=== PATIENT | female | born 1930 | race Caucasian/White ===

== ENCOUNTER 2017-08-19 12:54 | Emergency (ER) | payer MEDICARE, OTHER ==
[~2017-08-19] VITALS: Ht 152.4 cm; Wt 49.9 kg
[~2017-08-19 12:54] MED LIST: Benadryl25 MG; CHLO25B PO; Hydrocodone-Ap1 EA23 PO; QUET25 PO
[2017-08-19] MEDS ORDERED: DIPH50 PO (13:41)
[2017-08-19] MEDS ORDERED: CVS DISPOSABLE399 ML PR (13:43)
[2017-08-19] MEDS ORDERED: LOPE2C PO (13:45)
[2017-08-19] MEDS ORDERED: LORA.5 PO (13:51)
[2017-08-19] MEDS ORDERED: Milk Of Ma400 MG/5 M PO (13:52)
[2017-08-19] MEDS ORDERED: ACET325 PO (13:54)
[2017-08-19] MEDS ORDERED: Antacid Maximu355 ML PO (13:56)
[2017-08-19] MEDS ORDERED: BISA10S PR (13:58)
[2017-08-19] MEDS ORDERED: SENN187 PO (14:01)
[2017-08-19] MEDS ORDERED: VITAMIN D2000 UNIT PO (14:02)
[2017-08-19] MEDS ORDERED: TUMS200 MG PO (14:04)
[2017-08-19] MEDS ORDERED: QUET25 PO (14:06)
[2017-08-19] MEDS ORDERED: HYDR1TAB94 PO (14:11)
[2017-08-19 14:37] LABS: BASOPHILS ABSOLUTE AUTO 0.02 K/mm3 (0.00-0.23); BASOPHILS PERCENT AUTO 0 % (0-2); EOSINOPHILS ABSOLUTE AUTO 0.09 K/mm3 (0.00-0.68); EOSINOPHILS PERCENT AUTO 2 % (0-6); Hematocrit 35.3 % (33.0-51.0); Hemoglobin 11.9 g/dL (11.5-16.0); IMMATURE GRAN ABSOLUTE AUTO 0.02 K/mm3 (0.00-0.10); IMMATURE GRAN PERCENT AUTO 0 % (0-1); LYMPHOCYTES ABSOLUTE AUTO 1.08 K/mm3 (0.84-5.20); LYMPHOCYTES PERCENT AUTO 22 % (21-46); MONOCYTES ABSOLUTE AUTO 0.52 K/mm3 (0.16-1.47); MONOCYTES PERCENT AUTO 10 % (4-13); Mean Corpuscular HGB 29.8 pg (26.0-34.0); Mean Corpuscular HGB Conc 33.7 g/dL (31.5-36.5); Mean Corpuscular Volume 88 fL (80-100); Mean Platelet Volume 8.6 fL (9.1-12.4); NEUTROPHILS PERCENT AUTO 66 % (41-73); Platelet Count 350 K/mm3 (150-400); RDW Coefficient Variation 12.1 % (11.7-14.2); RDW Standard Deviation 39.4 fL (35.1-46.3); White Blood Cell Count 5.03 K/mm3 (4.00-11.30)
[2017-08-19 14:53] LABS: Alanine Aminotransfer (ALT/SGP 16 U/L (12-78); Albumin, Blood 3.6 g/dL (3.4-5.0); Albumin/Globulin Ratio 0.9 (0.8-1.8); Alk Phos 128 U/L (50-136); Anion Gap 8 mmol/L (6-16); Aspartate Aminotrans (AST/SGOT 19 U/L (12-37); Bilirubin, Total 0.4 mg/dL (0.1-1.0); Blood Urea Nitrogen 16 mg/dL (8-24); Bun/Creatinine Ratio 23.8 (12.0-20.0); CO2, Blood 28 mmol/L (21-32); Chloride, Blood 100 mmol/L (98-108); Creatinine, Blood 0.67 mg/dL (0.40-1.00); Globulin, Blood 3.9 g/dL (2.2-4.0); Glomerular Filtration Rate >60 (60-); Glucose, Blood 91 mg/dL (70-99); Potassium, Blood 3.5 mmol/L (3.5-5.5); Sodium, Blood 136 mmol/L (136-145); Total Protein, Blood 7.5 g/dL (6.4-8.2)
[2017-08-19 15:23] LABS: Source, Urine Clean Catch
[2017-08-19 15:27] LABS: Appearance, Urine Clear (Clear); Bilirubin, Urine Neg (Neg); Blood, Urine Neg (Neg); Color, Urine Yellow (P-Yellow); Glucose Qualitative, Urine Neg (Neg); Ketones, Urine Neg (Neg); Leukocyte Esterase, Urine Neg (Neg); Nitrite, Urine Neg (Neg); Protein, Urine Neg (Neg); Urobilinogen, Urine NORM (Normal)
== END 2017-08-19 18:35 | disposition home or self-care (01) ==
LOC: ER 12:54
PROVIDERS: Emergency Medicine
DX: T40.2X1A Poisoning by other opioids, accidental (unintentional), initial encounter (principal); Z88.7 Allergy status to serum and vaccine; Z88.8 Allergy status to other drugs, medicaments and biological substances; Z88.1 Allergy status to other antibiotic agents; Z79.899 Other long term (current) drug therapy
CPT/HCPCS: 36415; 80053; 81003; 85025; 93005; 93010; 99284; P9612

== ENCOUNTER → 2017-09-08 | Outpatient (CLI) | payer MEDICARE, OTHER ==
[~2017-09-08] MED LIST changes: +ACET325 PO; +Antacid Maximu355 ML PO; +BISA10S PR; +CVS DISPOSABLE399 ML PR; +DIPH50 PO; +HYDR1TAB94 PO; +LOPE2C PO; +LORA.5 PO; +Milk Of Ma400 MG/5 M PO; +SENN187 PO; +TUMS200 MG PO; +VITAMIN D2000 UNIT PO
[2017-09-08 14:11] LABS: Source, Urine Clean Catch
[2017-09-08 14:21] LABS: Appearance, Urine Clear (Clear); Bilirubin, Urine Neg (Neg); Blood, Urine Neg (Neg); Color, Urine Yellow (P-Yellow); Glucose Qualitative, Urine Neg (Neg); Ketones, Urine Neg (Neg); Leukocyte Esterase, Urine 1+ (Neg); Nitrite, Urine Neg (Neg); Protein, Urine Neg (Neg); Urobilinogen, Urine NORM (Normal); pH, Urine 6.5 (5.0-8.0)
[2017-09-08 15:24] LABS: Bacteria Not Seen /hpf; Red Blood Cells, Urine Not Seen /hpf (0-2); Squamous Epithelial Cells Not Seen /hpf (Few); White Blood Cells, Urine Not Seen /hpf (0-5)
== END ==
LOC: LAB 10:00 → LAB SHORT 10:00
DX: N39.0 Urinary tract infection, site not specified (principal)
CPT/HCPCS: 81001

== ENCOUNTER 2018-03-17 21:35 | Emergency (ER) | payer MEDICARE, OTHER ==
[~2018-03-17] VITALS: Ht 160 cm; Wt 59.0 kg
[2018-03-17 22:16] LABS: BASOPHILS ABSOLUTE AUTO 0.02 K/mm3 (0.00-0.23); BASOPHILS PERCENT AUTO 0 % (0-2); EOSINOPHILS PERCENT AUTO 1 % (0-6); Hematocrit 36.8 % (33.0-51.0); IMMATURE GRAN ABSOLUTE AUTO 0.03 K/mm3 (0.00-0.10); IMMATURE GRAN PERCENT AUTO 0 % (0-1); LYMPHOCYTES PERCENT AUTO 16 % (21-46); MONOCYTES ABSOLUTE AUTO 0.64 K/mm3 (0.16-1.47); MONOCYTES PERCENT AUTO 7 % (4-13); Mean Corpuscular HGB 30.9 pg (26.0-34.0); Mean Corpuscular HGB Conc 32.6 g/dL (31.5-36.5); Mean Corpuscular Volume 95 fL (80-100); Mean Platelet Volume 9.2 fL (9.1-12.4); NEUTROPHILS ABSOLUTE AUTO 6.84 K/mm3 (1.96-9.15); NEUTROPHILS PERCENT AUTO 76 % (41-73); Platelet Count 280 K/mm3 (150-400); RDW Coefficient Variation 12.5 % (11.7-14.2); RDW Standard Deviation 43.2 fL (35.1-46.3); Red Blood Cell Count 3.88 M/mm3 (3.80-5.20); White Blood Cell Count 9.03 K/mm3 (4.00-11.30)
[2018-03-17] MEDS ORDERED: Calcium Carbon500 MG PO (22:22)
[2018-03-17 22:35] LABS: Alanine Aminotransfer (ALT/SGP 15 U/L (12-78); Albumin, Blood 3.7 g/dL (3.4-5.0); Alk Phos 90 U/L (50-136); Anion Gap 6 mmol/L (6-16); Aspartate Aminotrans (AST/SGOT 15 U/L (12-37); Bilirubin, Total 0.4 mg/dL (0.1-1.0); Blood Urea Nitrogen 21 mg/dL (8-24); Bun/Creatinine Ratio 22.8 (12.0-20.0); CO2, Blood 30 mmol/L (21-32); Calcium, Blood 8.5 mg/dL (8.5-10.1); Chloride, Blood 101 mmol/L (98-108); Creatinine, Blood 0.92 mg/dL (0.40-1.00); Globulin, Blood 3.6 g/dL (2.2-4.0); Glomerular Filtration Rate >60 (60-); Glucose, Blood 104 mg/dL (70-99); Potassium, Blood 3.8 mmol/L (3.5-5.5); Sodium, Blood 137 mmol/L (136-145); Total Protein, Blood 7.3 g/dL (6.4-8.2)
== END 2018-03-17 23:15 | disposition home or self-care (01) ==
LOC: ER 21:35
PROVIDERS: Emergency Medicine
DX: R07.9 Chest pain, unspecified (principal); Z88.7 Allergy status to serum and vaccine; Z88.8 Allergy status to other drugs, medicaments and biological substances; Z88.1 Allergy status to other antibiotic agents; Z79.899 Other long term (current) drug therapy
CPT/HCPCS: 36415; 71046; 80053; 85025; 93005; 93010; 99285-25

== ENCOUNTER 2018-08-04 09:49 | Inpatient (IN) | payer MEDICARE, OTHER ==
[~2018-08-04] VITALS: Ht 162.6 cm; Wt 63.5 kg
[~2018-08-04 09:49] MED LIST changes: +TUMS500 MG PO
[2018-08-04] MEDS ORDERED: LEVSOD25 PO (10:17)
[2018-08-04] MEDS ORDERED: CEFD300 PO (10:18)
[2018-08-04] MEDS ORDERED: QUET25 PO (10:18)
[2018-08-04 10:32] LABS: Source, Urine Catheter
[2018-08-04 10:37] LABS: PCO2 Arterial 27.4 mmHg (35-45); PO2 Arterial 72.8 mmHg (80-100); pH Blood Arterial 7.48 (7.35-7.45)
[2018-08-04 10:44] LABS: Bilirubin, Urine Neg (Neg); Blood, Urine 5+ (Neg); Glucose Qualitative, Urine Neg (Neg); Ketones, Urine 1+ (Neg); Leukocyte Esterase, Urine 3+ (Neg); Nitrite, Urine Pos (Neg); Protein, Urine 3+ (Neg); Specific Gravity, Urine 1.025 (1.003-1.022); Urobilinogen, Urine NORM (Normal)
[2018-08-04 11:01] LABS: Albumin, Blood 3.1 g/dL (3.4-5.0); Bilirubin, Total 1.2 mg/dL (0.1-1.0); Bun/Creatinine Ratio 32.1 (12.0-20.0); Calcium, Blood 8.6 mg/dL (8.5-10.1); Creatinine, Blood 1.06 mg/dL (0.40-1.00); Globulin, Blood 3.2 g/dL (2.2-4.0); Potassium, Blood 3.7 mmol/L (3.5-5.5); Total Protein, Blood 6.3 g/dL (6.4-8.2); Troponin I 0.249 ng/mL (0.000-0.040)
[2018-08-04 11:04] LABS: BASOPHILS ABSOLUTE AUTO 0.02 K/mm3 (0.00-0.23); BASOPHILS PERCENT AUTO 0 % (0-2); EOSINOPHILS PERCENT AUTO 0 % (0-6); Hematocrit 33.1 % (33.0-51.0); Hemoglobin 10.8 g/dL (11.5-16.0); IMMATURE GRAN ABSOLUTE AUTO 0.06 K/mm3 (0.00-0.10); IMMATURE GRAN PERCENT AUTO 1 % (0-1); LYMPHOCYTES ABSOLUTE AUTO 1.37 K/mm3 (0.84-5.20); LYMPHOCYTES PERCENT AUTO 15 % (21-46); MONOCYTES PERCENT AUTO 10 % (4-13); Mean Corpuscular HGB 30.5 pg (26.0-34.0); Mean Corpuscular HGB Conc 32.6 g/dL (31.5-36.5); Mean Corpuscular Volume 94 fL (80-100); NEUTROPHILS ABSOLUTE AUTO 6.97 K/mm3 (1.96-9.15); NEUTROPHILS PERCENT AUTO 75 % (41-73); Platelet Count 331 K/mm3 (150-400); RDW Coefficient Variation 16.3 % (11.7-14.2); RDW Standard Deviation 53.8 fL (35.1-46.3); Red Blood Cell Count 3.54 M/mm3 (3.80-5.20); White Blood Cell Count 9.32 K/mm3 (4.00-11.30)
[2018-08-04 11:04] LABS: Appearance, Urine Turbid (Clear); Color, Urine Yellow (P-Yellow)
[2018-08-04 11:07] LABS: Red Blood Cells, Urine TNTC /hpf (0-2); White Blood Cells, Urine TNTC /hpf (0-5)
[2018-08-04 11:08] LABS: Squamous Epithelial Cells Many /hpf (Few)
[2018-08-04 11:09] LABS: Bacteria Mod /hpf
[2018-08-04] MEDS ORDERED: BENADRYL25 MG PO (12:25)
[2018-08-04] MEDS ORDERED: DOXY100 PO (14:35)
[2018-08-04] MEDS ORDERED: CHOL10002 PO (14:37)
[2018-08-04] MEDS ORDERED: ANTACID PLUS A355 M1 PO (14:39)
[2018-08-04] MEDS ORDERED: BISA10S PR (14:40)
[2018-08-04] MEDS ORDERED: Enema133 M1 PR (14:42)
[2018-08-04] MEDS ORDERED: Norco 5-325 Ta1 EACH PO (14:43)
[2018-08-04] MEDS ORDERED: Anti-Diarrheal2 MG PO (14:43)
[2018-08-04] MEDS ORDERED: LORA.5 PO (14:44)
[2018-08-04] MEDS ORDERED: Nystatin100000 UN1 PO (14:45)
[2018-08-04] MEDS ORDERED: Milk Of Ma400 MG/5 M PO (14:45)
--- NOTE | 2018-08-04 16:50 | NUR ---
Met with patients son. He is in the process of reviewing and updating his parents advance directives and POA's. Pt had many questaion about differnce of POLST and AD. Review of documents and gave pt son a updated POLST form for his father to complete. At this time he wants to keep his mother limited interventions. We reviewed BIPAP and oxygen and treatment levels and briefly prognosis. He would like to give basic treatments and see if she reponds. We discussed when it may be time to allow a natural progression of life. He was very open and reasonable about her care. He is a little overwhelmed at this time with both parents. He will speak with his father and evaluate her condition tomorrow. If no imporvement or decline he will change to comfort only. Copy of current post faxed to medical records.
--- NOTE | 2018-08-04 19:00 | NUR ---
PT. LYING IN BED, BILATERAL WRIST RESTRAINTS APPLIED R/T PT. TRYING TO PULL IV AND TELEMETRY UNIT OFF. NO NOTEABLE CHANGES THIS SHIFT.
[2018-08-05 02:50] LABS: BASOPHILS ABSOLUTE AUTO 0.02 K/mm3 (0.00-0.23); BASOPHILS PERCENT AUTO 0 % (0-2); EOSINOPHILS PERCENT AUTO 0 % (0-6); Hematocrit 34.4 % (33.0-51.0); IMMATURE GRAN ABSOLUTE AUTO 0.05 K/mm3 (0.00-0.10); IMMATURE GRAN PERCENT AUTO 1 % (0-1); LYMPHOCYTES ABSOLUTE AUTO 1.43 K/mm3 (0.84-5.20); LYMPHOCYTES PERCENT AUTO 14 % (21-46); MONOCYTES PERCENT AUTO 8 % (4-13); Mean Corpuscular HGB 30.2 pg (26.0-34.0); Mean Corpuscular Volume 95 fL (80-100); Mean Platelet Volume 9.1 fL (9.1-12.4); NEUTROPHILS PERCENT AUTO 78 % (41-73); NRBC ABSOLUTE 0.02 K/mm3 (0.00-0.02); NRBC Auto 0.2 /100 WBC (0.0-0.2); Platelet Count 344 K/mm3 (150-400); RDW Coefficient Variation 16.3 % (11.7-14.2); RDW Standard Deviation 54.4 fL (35.1-46.3); Red Blood Cell Count 3.64 M/mm3 (3.80-5.20)
[2018-08-05 03:05] LABS: Bun/Creatinine Ratio 33.3 (12.0-20.0); Calcium, Blood 8.8 mg/dL (8.5-10.1); Creatinine, Blood 1.2 mg/dL (0.40-1.00); Potassium, Blood 3.7 mmol/L (3.5-5.5)
--- NOTE | 2018-08-05 04:49 | NUR ---
SHIFT SUMMARY PT REMAINED IN RESTRAINTS THROUGHOUT THE NIGHT. PT HAS SEVERE DEMENTIA. SPEECH TYPICALLY NONSENSICAL. PT CANNOT FOLLOW DIRECTIONS. PT CONTINUED TO TRY AND REMOVE TELEMETRY AND IV CAUSING THE NEED FOR CONTINUED USE OF RESTRAINTS. PT INCONTINENT OF BOWEL AND BLADDER. ONE SMALL SOFT BM TONIGHT. ATTENDS IN PLACE. TELEMETRY READING SR W/ PAC'S AND PVC'S AT 86. TROPONIN TRENDED DOWN AND THEN BACK UP THIS EVENING GOING FROM .249 TO .240 TO .290. BNP ALSO INCREASED THIS EVENING FROM [address] HOUSE. NO NEW ORDERS AT THIS TIME. FAMILY AT BEDSIDE AT START OF SHIFT BUT LEFT REPORTING THAT IT WAS UPSETTING THE PT. PT REMAINED IN BED. VSS. WILL CONTINUE TO MONITOR AND REPORT TO DAY RN.
--- NOTE | 2018-08-05 12:53 | NUR ---
Met with patient and son. They have chose to send her home [facility]. Review of hospice plan. They are not particular to company [facility] is available so offered their service and they accepted notified [facility] and home care provider
--- NOTE | 2018-08-05 19:19 | NUR ---
SHIFT SUMMARY PT CHANGED TO COMFORT CARE TODAY WITH SON AND DAUGHTER IN LAW PRESENT TO VISIT AT LUNCH TIME AND THEN LATER IN AFTERNOON. PT REMOVED FROM RESTRAINTS WHEN IV REMOVED AND ANTIOBIOTIC GIVEN. MEDICATED WITH ROXONAL AND HAS BEEN QUIET SINCE. HAS ATTEMPTED TO HIT OUT AT STAFF AT TIMES WHEN CARE PROVIDED.
--- NOTE | 2018-08-05 22:58 | NUR ---
No longer has iv or tele, does not try to leave bed dc d restraints, resting quietly in bed will continue to monitor and treat
--- NOTE | 2018-08-06 07:25 | NUR ---
comfort care, meds given one at a time with as, long time to swallow, sitting 90 degree, call light in reach, no iv, room air, walking rounds completed with day shift
--- NOTE | 2018-08-06 09:17 | NUR ---
notified esbl in urine. on hospice.
--- NOTE | 2018-08-06 10:50 | NUR ---
REPORT GIVEN TO RD AT [facility]. ANSWER ALL QUESTIONS. AWARE TO LEAVE ABOUT 11AM VIA [facility].
[2018-08-06] MEDS ORDERED: MORP20L PO (10:57)
== END 2018-08-06 11:15 | disposition home or self-care (01) | DRG 280 ==
LOC: ER 09:49 → MEDS 12:20
PROVIDERS: Emergency Medicine; ADMIT Internal Medicine
DX: I11.0 Hypertensive heart disease with heart failure (principal); I50.21 Acute systolic (congestive) heart failure; I21.4 Non-ST elevation (NSTEMI) myocardial infarction; N39.0 Urinary tract infection, site not specified; E87.1 Hypo-osmolality and hyponatremia; I35.0 Nonrheumatic aortic (valve) stenosis; I25.5 Ischemic cardiomyopathy; Z51.5 Encounter for palliative care; B96.20 Unspecified Escherichia coli [E. coli] as the cause of diseases classified elsewhere; F03.90 Unspecified dementia, unspecified severity, without behavioral disturbance, psychotic disturbance, mood disturbance, and anxiety; D63.8 Anemia in other chronic diseases classified elsewhere; E03.9 Hypothyroidism, unspecified; Z66 Do not resuscitate; D64.9 Anemia, unspecified; Z78.1 Physical restraint status
CPT/HCPCS: 36415; 36600; 71045; 80048; 80053; 81001; 82803; 83605; 83880; 84484; 85025; 87077; 87086; 87186; 93005; 93010; 93306; 96365; 99285-25; J0696; J1650; J1940; P9612